=== PATIENT | female | born 1995 | race Caucasian/White ===

== ENCOUNTER 2017-01-24 21:00 | Emergency (ER) | payer MEDICARE, MEDICAID ==
[~2017-01-24] VITALS: Ht 152.4 cm; Wt 90.0 kg
[~2017-01-24 21:00] MED LIST: BENZ100C70 PO; DOXY100T20 PO; IBUP-1542 PO; NPH10OT RIGHT EAR
[2017-01-24 21:08] VITALS: Ht 152.4 cm; Wt 90.0 kg
[2017-01-24] MEDS ORDERED: IBUP400T22 PO (22:02)
--- NOTE | 2017-01-24 22:10 | ERA ---
ER Documentation Chief Complaint Date/Time DATE: 01/24/17 TIME: 22:05 Chief Complaint back neck pain and swelling HPI 22-year-old obese but otherwise healthy female presenting complaining of neck pain 4 years. Patient also states that there is a small bump on the affected area that is soft. Patient denies IV drug use, night sweats, fatigue, change in appetite, nausea, vomiting, diarrhea, constipation. Patient has no other complaints and describes no other associated manifestations. Nursing notes have been reviewed and are consistent with history given. ROS All systems reviewed and are negative except as per history of present illness. Medications Home Meds Active Scripts Ibuprofen* (Motrin*) 400 Mg Tab, 400 MG PO Q6, #30 TAB Prov:HAWA BRYAN PA-C 01/24/17 Benzonatate* (Tessalon Perle*) 100 Mg Capsule, 100 MG PO TID for 7 Days, CAP Prov:JEFFERY RAZO PA-C 05/08/16 Neomycin/Polymyxin/Hydrocort* (Cortisporin* Otic) 10 Ml Susp, 4 DROP RIGHT EAR QID for 7 Days, EA Prov:JIM PRICE MD 03/21/15 Ibuprofen* (Motrin*) 600 Mg Tab, 600 MG PO Q6, #14 TAB Prov:JIM PRICE MD 03/21/15 Doxycycline Hyclate* (Doxycycline Hyclate*) 100 Mg Tablet.dr, 100 MG PO BID for 7 Days, TAB Prov:JIM PRICE MD 03/21/15 Reported Medications [None] No Conflict Check 08/08/10 Allergies Allergies: Coded Allergies: No Known Allergy (Verified , 05/08/16) PMhx/Soc History of Surgery: No Anesthesia Reaction: No Hx Neurological Disorder: No Hx Respiratory Disorders: No Hx Cardiac Disorders: No Hx Psychiatric Problems: No Hx Miscellaneous Medical Probl: No Hx Alcohol Use: No Hx Substance Use: No Hx Tobacco Use: No Smoking Status: Never smoker Physical Exam Vitals Vital Signs Date Time Temp Pulse Resp B/P Pulse Ox O2 Delivery O2 Flow Rate FiO2 01/24/17 21:08 99.2 82 18 123/56 98 Physical Exam Const: Morbidly obese 22-year-old female in no acute distress Head: Normocephalic, Atraumatic. Eyes: Non-injected; No discharge or foreign body. EOMI and KENZIE bilaterally. Ears: Normal External Ears, EACs clear, TM normal bilaterally without erythema. Nose: Normal external nose; no discharge, septal deviation, or sinus tenderness. Oral: No oral edema visualized. Mucous membranes moist and pink. Neck: No cervical lymphadenopathy, masses or goiter palpated. Trachea midline. Supple ~ No meningismus. Pulm: Good air movement in upper and lower respiratory tracts. No dyspnea, stridor, tripoding or drooling. Clear to auscultation bilaterally. Cardio: Regular rate and rhythm; No murmurs, gallops or rubs auscultated. No JVD grossly observed. Radial and posterior tibial pulses 2+ bilaterally. No cyanosis. Capillary refill less than 2 seconds. Abd: Soft, non tender, non distended. No guarding, masses. Normal bowel sounds. No McBurney's point tenderness. MS: Normal motor strength, normal tone with gross examination. Skin: No petechiae or rashes. No ulcer, induration, jaundice. Good turgor. Back: No midline, flank or CVA tenderness. Ext: No edema or palpable cord. Normal movement of all extremities grossly observed. Neur: Awake, alert and oriented x3. Neurovascularly intact bilaterally. Psych: Normal Mood and Affect. Procedures/MDM Morbidly obese but otherwise healthy 22-year-old female no acute distress presenting with a chief complaint of neck pain. Nothing aggravates or alleviates the pain. Also describes a bump that is noticed by her sister on the back. Physical examination was unremarkable for a lump or tenderness with palpation. At this time the most likely diagnosis is neck pain of unknown etiology versus lipoma. I have little suspicion for meningitis, bony pathology or neurovascular compromise. I am unable to rule out more chronic conditions at this time and have suggested that the patient follow-up with PCP in the next 1-3 days for further evaluation and possible referral to a specialist. I have spoke with the patient regarding their condition and future management. They have verbally responded that they understand their status and treatment plan. The patients vitals are stable, and their current condition is appropriate for discharge. The patient will be given discharge instructions with return precautions. Departure Diagnosis: Primary Impression: Neck pain Condition: Stable Patient Instructions: Neck Pain, No Trauma Referrals: [facility] YOU HAVE RECEIVED A MEDICAL SCREENING EXAM AND THE RESULTS INDICATE THAT YOU DO NOT HAVE A CONDITION THAT REQUIRES URGENT TREATMENT IN THE EMERGENCY DEPARTMENT. FURTHER EVALUATION AND TREATMENT OF YOUR CONDITION CAN WAIT UNTIL YOU ARE SEEN IN YOUR DOCTORS OFFICE WITHIN THE NEXT 1-2 DAYS. IT IS YOUR RESPONSIBILITY TO MAKE AN APPOINTMENT FOR FOLOW-UP CARE. IF YOU HAVE A PRIMARY DOCTOR --you should call your primary doctor and schedule an appointment IF YOU DO NOT HAVE A PRIMARY DOCTOR YOU CAN CALL OUR PHYSICIAN REFERRAL HOTLINE AT IF YOU CAN NOT AFFORD TO SEE A PHYSICIAN YOU CAN CHOSE FROM THE FOLLOWING [facility] [address] [facility] [address] [facility] [facility] [address] [facility] [facility] [address] [facility] [facility] [address] [facility] [facility]. [address] [facility] [facility] () Usted se perdue hecho un examen mdico de control que le indica que no est en ivonne condicin que requiera tratamiento urgente en el Departamento de Emergencia. Un estudio ms profundo y el tratamiento de bhatt condicin pueden esperar sin ningn riesgo hasta que usted sea atendida/o en el consultorio de bhatt mdico o ivonne cl carlos. Es responsabilidad suya arreglar ivonne domingo para el seguimiento del francoise. MANEJO DE CONDICIONES NO URGENTES EN EL FUTURO 1) Si usted tiene un mdico de atencin primaria: Usted debera llamar a bhatt mdico de atencin primaria antes de venir al departamento de emergencia. Despus de las horas de consultorio, bhatt doctor o bhatt asociado/a est disponible por telfono. El mdico o enfermero de sunshine en el servicio telefnico puede asesorarle por claritza medio para atender el problema, o francoise contrario se puede programar ivonne domingo. 2) Si usted no tiene un mdico de atencin primaria: Llame al mdico o clnica de referencia que aparece abajo silvino las horas de consultorio para hacer ivonne domingo para que le vean. CLINICAS: [facility] [phone] [facility] [phone] [facility] [phone] [place] [address] [phone] [place] [id number] [phone] [facility] [phone] [address] Additional Instructions: Follow up with your PCP within the next 1-3 days for a more thorough evaluation and a possible referral to a specialist. Return the the emergency department immediately if symptoms worsen or change. If you have any questions regarding medications, ask your pharmacist or us before you leave. If any adverse reactions occur while taking your medications, discontinue the treatment and return to the emergency department immediately. Take your medications as directed, and complete the entire course of treatment. HAWA BRYAN PA-C Jan 24, 2017 22:10
== END 2017-01-24 22:16 | disposition home or self-care (01) ==
LOC: FTE 21:00
DX: M54.2 Cervicalgia (principal)
CPT/HCPCS: 99283